=== PATIENT | female | born 1995 | race Caucasian/White ===

== ENCOUNTER 2016-03-15 10:29 | Emergency (ER) | payer SELFPAY ==
[2016-03-15] MEDS ORDERED: Norflex 60 MG/2 ML IM ONE (10:51)
[2016-03-15] MEDS ORDERED: TORAdol 30 mg Injection IM ONE (10:51)
[2016-03-15] MEDS ORDERED: TORAdol 30 mg Injection ONE (10:52)
[2016-03-15] MEDS ORDERED: Norflex 60 MG/2 ML ONE (10:53)
[2016-03-15 10:54] LABS: Collection Type VOID
[2016-03-15 10:55] LABS: COMPLETE URINE MICROSCOPIC? YES
[2016-03-15 10:58] LABS: ADD URINE CULTURE? YES (NO); Bacteria MODERATE /HPF (NEGATIVE); Epithelial Cells MANY /HPF (FEW)
--- NOTE | 2016-03-15 11:06 | ERPHSYRPT ---
- History of Present Illness Time Seen by Provider: 03/15/16 11:02 Source: patient Exam Limitations: no limitations Patient Subjective Stated Complaint: pt states she injured lower back 1 week ago while lifting a bucket. pt states pain got better and then worse over the past few days. Triage Nursing Assessment: pt pink, warm, dry. no swelling to lower back noted. pt ambulated into er without difficulty. Physician History: pt states she injured lower back 1 week ago while lifting a bucket. pt states pain got better and then worse over the past few days. Timing/Duration: day(s) Method of Injury: bending, lifting Quality: aching, cramping, pressure Back Pain Location: paraspinous muscles Severity of Pain-Max: mild Severity of Pain-Current: mild Modifying Factors: Improves With: nothing Allergies/Adverse Reactions: morphine Allergy (Verified 03/15/16 10:47) Hx Tetanus, Diphtheria Vaccination/Date Given: Yes (up to date) Hx Influenza Vaccination/Date Given: No Hx Pneumococcal Vaccination/Date Given: No Immunizations Up to Date: Yes - Review of Systems Constitutional: No Symptoms Eyes: No Symptoms Ears, Nose, & Throat: No Symptoms Respiratory: No Symptoms Cardiac: No Symptoms Abdominal/Gastrointestinal: No Symptoms Musculoskeletal: Back Pain (paraspinal muscle spasm) Skin: No Symptoms - Past Medical History Pertinent Past Medical History: Yes Neurological History: No Pertinent History ENT History: No Pertinent History Cardiac History: Hypertension Respiratory History: No Pertinent History Endocrine Medical History: No Pertinent History Musculoskeletal History: No Pertinent History GI Medical History: No Pertinent History History: No Pertinent History Psycho-Social History: No Pertinent History Female Reproductive Disorders: No Pertinent History - Past Surgical History Past Surgical History: Yes Neuro Surgical History: No Pertinent History Cardiac: No Pertinent History Respiratory: No Pertinent History Gastrointestinal: No Pertinent History Genitourinary: No Pertinent History Musculoskeletal: No Pertinent History Female Surgical History: No Pertinent History Other Surgical History: tubes in ears. sinus surgery - Social History Smoking Status: Current every day smoker How long have you smoked: 2 Exposure to second hand smoke: Yes Drug Use: none Patient Lives Alone: No - Female History Hx Last Menstrual Period: feb 05 2016 - Nursing Vital Signs Temperature: 97.8 F Temperature Source: Oral Pulse Rate: 83 Respiratory Rate: 18 Pain Intensity: 8 - Physical Exam General Appearance: no apparent distress Back Exam: muscle spasm (mid paraspinal muscles) SpO2: 99 Oxygen Delivery: Room Air - Course Nursing assessment & vital signs reviewed: Yes Ordered Tests: Active Orders 24 hr Category Date Time Status CULTURE,URINE Stat Lab 03/15/16 10:45 Received UA W/ MICROSCOPIC Stat Lab 03/15/16 10:45 Completed UA W/RFX UR CULTURE Stat Lab 03/15/16 10:45 Completed Medication Summary Discontinued Medications Generic Name Dose Route Start Last Admin Trade Name Dannyq PRN Reason Stop Dose Admin Ketorolac Tromethamine 60 mg 03/15/16 10:51 03/15/16 10:53 Toradol 30 Mg Injection IM 03/15/16 10:52 60 mg STAT ONE Administration Ketorolac Tromethamine Confirm 03/15/16 10:52 Toradol 30 Mg Injection Administered 03/15/16 10:53 Dose 60 mg .ROUTE .STK-MED ONE Orphenadrine Citrate 60 mg 03/15/16 10:51 03/15/16 10:53 Norflex 60 Mg/2 Ml IM 03/15/16 10:52 60 mg STAT ONE Administration Orphenadrine Citrate Confirm 03/15/16 10:53 Norflex 60 Mg/2 Ml Administered 03/15/16 10:54 Dose 60 mg .ROUTE .STK-MED ONE Lab/Rad Data: Laboratory Results 03/15/16 Range/Units 10:45 Ur Collection Type VOID Urine Color YELLOW (YELLOW) Urine Appearance SLIGHTLY CLOUDY (CLEAR) Urine pH 6.0 (5-6) Ur Specific [place] 1.025 (1.005-1.025) Urine Protein NEGATIVE (Negative) Urine Glucose (UA) NEGATIVE (NEGATIVE) mg/dL Urine Ketones NEGATIVE (NEGATIVE) Urine Nitrite NEGATIVE (NEGATIVE) Urine Bilirubin NEGATIVE (NEGATIVE) Urine Urobilinogen 0.2 (0-1) mg/dL Urine WBC (Auto) SMALL (NEGATIVE) Urine RBC (Auto) MODERATE (0-5) Wil/ul Urine Microscopic RBC 5-10 (0-2) /HPF Urine Microscopic WBC 10-15 (0-5) /HPF Ur Epithelial Cells MANY (FEW) /HPF Urine Bacteria MODERATE (NEGATIVE) /HPF Specimen Received 03/15/16 1045 - Progress Progress: improved, pain not gone completely Counseled pt/family regarding: diagnosis, need for follow-up - Departure Time of Disposition: 11:04 Departure Disposition: Home Clinical Impression: Paraspinal muscle spasm Condition: Stable Critical Care Time: No Referrals: JOSEFA KATHLEEN [Primary Care Provider] - Additional Instructions: BACK INJURY 1. May apply moist heat frequently for relief of pain. Take care not to burn the skin. Do not use heat for more than 30 minutes at a time. 2. Try to sleep on a firm bed, flat on your back. 3. If no improvement is noticed in 2-3 days, follow up with your family physician. 4. If you notice any numbness, tingling, weakness, or problems with your bowel or bladder, you should call your family physician or return to the emergency department. Please follow the instructions given to you. Please take your medication as prescribed if given. If symptoms recur or get worse, come back to the emergency room if you cannot reach your primary care physician, or call your primary care physician for an appointment. Again if your symptoms get worse, come back to the emergency room. Thanks for visiting emergency room, and let us take care of you. Prescriptions: Cyclobenzaprine HCl 10 mg PO TID #30 tablet Naproxen 375 mg [Naprosyn 375 mg] 375 mg PO Q8H #30 tablet
[2016-03-15 11:15] VITALS: BP 124/70; PULSE 70; O2SAT 100
== END 2016-03-15 11:14 | disposition home or self-care (01) ==
LOC: ED 10:29
DX: M62.830 Muscle spasm of back (principal); X50.0XXA Overexertion from strenuous movement or load, initial encounter
CPT/HCPCS: 81000; 87086; 96372; 99283; J1885; J2360

== ENCOUNTER 2016-08-17 05:31 | Emergency (ER) | payer OTHER ==
--- NOTE | 2016-08-17 06:13 | ERPHSYRPT ---
- History of Present Illness Time Seen by Provider: 08/17/16 06:08 Source: patient, family Exam Limitations: no limitations Physician History: pt with ear pain on left for several days and ear drops are not helping , prior problems with same; Timing/Duration: gradual onset, days Severity: moderate ENT Location: ear (L) Prearrival Treatment: over the counter meds, prescription meds Modifying Factors: Improves With: nothing Associated Symptoms: ear pain (L), jaw pain, No poor fluid intake, No difficulty swallowing Allergies/Adverse Reactions: morphine Allergy (Verified 03/15/16 10:47) Home Medications: Dicyclomine HCl 20 mg [Bentyl 20 mg] 20 mg PO DAILY 08/17/16 [History] Hx Tetanus, Diphtheria Vaccination/Date Given: Yes (up to date) Hx Influenza Vaccination/Date Given: No Hx Pneumococcal Vaccination/Date Given: No - Review of Systems Constitutional: No Fever, No Chills Eyes: No Symptoms Ears, Nose, & Throat: Ear Pain Respiratory: No Cough, No Dyspnea Cardiac: No Chest Pain, No Edema, No Syncope Abdominal/Gastrointestinal: No Abdominal Pain, No Nausea, No Vomiting, No Diarrhea Genitourinary Symptoms: No Dysuria Musculoskeletal: No Back Pain, No Neck Pain Skin: No Rash Neurological: No Dizziness, No Focal Weakness, No Sensory Changes Psychological: No Symptoms Endocrine: No Symptoms All Other Systems: Reviewed and Negative - Past Medical History Pertinent Past Medical History: Yes Neurological History: No Pertinent History ENT History: No Pertinent History Cardiac History: Hypertension Respiratory History: No Pertinent History Endocrine Medical History: No Pertinent History Musculoskeletal History: No Pertinent History GI Medical History: No Pertinent History History: No Pertinent History Psycho-Social History: No Pertinent History Female Reproductive Disorders: No Pertinent History - Past Surgical History Past Surgical History: Yes Neuro Surgical History: No Pertinent History Cardiac: No Pertinent History Respiratory: No Pertinent History Gastrointestinal: No Pertinent History Genitourinary: No Pertinent History Musculoskeletal: No Pertinent History Female Surgical History: No Pertinent History Other Surgical History: tubes in ears. sinus surgery - Social History Smoking Status: Current every day smoker How long have you smoked: 2 Exposure to second hand smoke: Yes Drug Use: none Patient Lives Alone: No - Physical Exam General Appearance: no apparent distress, alert Eye Exam: bilateral eye: PERRL, EOMI Ear Exam: right ear: canal normal, TM normal, left ear: discharge, erythema, bilateral ear: auricle normal Nasal Exam: normal inspection Throat Exam: pharynx normal, moist mucus membranes, No dental tenderness, No excessive drooling, No mandibular swelling, No maxillary swelling, No pharynx swelling, No pharynx tenderness, No tongue swollen, No tonsillar exudate, No trismus, No uvula swelling, No voice changes Neck Exam: non-tender, supple, full range of motion, trachea midline Cardiovascular/Respiratory Exam: normal breath sounds, regular rate/rhythm, heart sounds normal Abdominal Exam: non-tender, soft Neurologic Exam: alert, oriented x 3, cooperative, director of enterprise strategy II-XII nml as tested, normal mood/affect, nml station & gait, sensation nml, No motor deficits Skin Exam: normal color, warm, dry - Course Nursing assessment & vital signs reviewed: Yes - Progress Progress: improved, re-examined Counseled pt/family regarding: diagnosis, need for follow-up - Departure Time of Disposition: 06:13 Departure Disposition: Home Clinical Impression: External otitis of right ear Condition: Good Critical Care Time: No Instructions: Otitis Externa Additional Instructions: followup with your dr as you may need an ENT referral return meantime if not improving Prescriptions: Ciprofloxacin [Cipro 500 MG] 500 mg PO BID #14 tablet Ciprofloxacin HCl/Dexameth [Ciprodex Otic Suspension] 7.5 ml OT QID #10 drops.susp Hydrocodone/Acetaminophen [[place] 5-325 Tablet] 1 each PO Q4-6HPRN PRN #14 tablet PRN Reason: Pain
[2016-08-17 06:25] VITALS: O2SAT 99
[2016-08-17] MEDS ORDERED: Cipro 500 MG PO ONE (06:31)
[2016-08-17] MEDS ORDERED: Cipro 500 MG ONE (06:32)
[2016-08-17] MEDS ORDERED: TYLENOL EXTRA STRENGTH 500 MG PO ONE (06:35)
[2016-08-17] MEDS ORDERED: MOTRIN 600 MG PO ONE (06:35)
[2016-08-17] MEDS ORDERED: TYLENOL EXTRA STRENGTH 500 MG ONE (06:36)
[2016-08-17] MEDS ORDERED: MOTRIN 600 MG ONE (06:37)
[2016-08-17] MEDS ORDERED: TORAdol 30 mg Injection IM ONE (06:38)
[2016-08-17] MEDS ORDERED: Phenergan 25 MG INJ IM ONE (06:38)
[2016-08-17] MEDS ORDERED: Phenergan 25 MG INJ ONE ×2 (06:41→06:42)
[2016-08-17] MEDS ORDERED: TORAdol 30 mg Injection ONE (06:41)
[2016-08-17 06:53] VITALS: BP 167/80; PULSE 80
== END 2016-08-17 06:53 | disposition home or self-care (01) ==
LOC: ED 05:31
DX: H60.91 Unspecified otitis externa, right ear (principal)
CPT/HCPCS: 96372; 99284; J1885; J2550; A9270-GY

== ENCOUNTER 2018-06-20 21:46 | Emergency (ER) | payer OTHER ==
[2018-06-20 22:05] VITALS: O2SAT 99
[2018-06-20] MEDS ORDERED: TORAdol 30 mg Injection IM ONE (22:13)
[2018-06-20] MEDS ORDERED: BACIGUENT PACKET TP ONE (22:14)
[2018-06-20] MEDS ORDERED: TORAdol 30 mg Injection ONE (22:15)
[2018-06-20] MEDS ORDERED: BACIGUENT PACKET ONE (22:18)
--- NOTE | 2018-06-20 22:21 | ERPHSYRPT ---
- History of Present Illness Time Seen by Provider: 06/20/18 22:08 Source: patient Exam Limitations: no limitations Patient Subjective Stated Complaint: pt states she stepped wrong off bottom step of porch and twisted left foot. c/o pain in dorsal foot. Triage Nursing Assessment: pink/warm/dry, resp easy, pt wheeled to room able to stand and transfer to bed. a&ox4. Abrasion with no active bleeding noted to distal lateral left foot. Physician History: 22-year-old white female with history of denies blood pressure is high blood pressure depression, elevated testosterone. Patient arrives with complaint of pain in her left foot and ankle after miss stepping on some steps at approximately 9:30. She has pain on her left lateral foot distally also pain in her left ankle worse with movement. Past medical history includes depression, elevated testosterone, Past surgical history includes myringotomy tubes, sinus surgery Method of Injury: twisted (misstep on a step twisting her left foot and ankle) Occurred: hours ago (1 hour ago) Quality: constant, aching Severity of Pain-Max: moderate Severity of Pain-Current: moderate Lower Extremities Pain: foot: left, ankle: left Modifying Factors: Improves With: nothing, movement Associated Symptoms: none Allergies/Adverse Reactions: morphine Adverse Reaction (Verified 06/20/18 21:52) hallucinations Home Medications: Escitalopram Oxalate [Lexapro] 10 mg PO DAILY 06/20/18 [History] Metformin HCl Xr 500 mg [Glucophage XR 500 MG] 500 mg PO DAILY 06/20/18 [ History] Naproxen 500 mg PO BID 06/20/18 [History] Norethindrone [Jencycla] 0.35 mg PO DAILY 06/20/18 [History] Spironolactone 100 mg PO DAILY 06/20/18 [History] Hx Tetanus, Diphtheria Vaccination/Date Given: Yes Hx Influenza Vaccination/Date Given: No Hx Pneumococcal Vaccination/Date Given: No Immunizations Up to Date: Yes - Review of Systems Constitutional: No Fever, No Chills Eyes: No Symptoms Ears, Nose, & Throat: No Symptoms Respiratory: No Cough, No Dyspnea Cardiac: No Chest Pain, No Edema, No Syncope Abdominal/Gastrointestinal: No Abdominal Pain, No Nausea, No Vomiting, No Diarrhea Genitourinary Symptoms: No Dysuria Musculoskeletal: Other (left foot and ankle pain), No Back Pain, No Neck Pain Skin: Other (abrasion left lateral distal foot) Neurological: No Dizziness, No Focal Weakness, No Sensory Changes Psychological: No Symptoms Endocrine: No Symptoms All Other Systems: Reviewed and Negative - Past Medical History Pertinent Past Medical History: Yes Neurological History: No Pertinent History ENT History: No Pertinent History Cardiac History: No Pertinent History Respiratory History: No Pertinent History Endocrine Medical History: No Pertinent History Musculoskeletal History: No Pertinent History GI Medical History: No Pertinent History History: No Pertinent History Psycho-Social History: Depression Female Reproductive Disorders: No Pertinent History Other Medical History: ELEVATED TESTOSTERONE - Past Surgical History Past Surgical History: Yes Neuro Surgical History: No Pertinent History Cardiac: No Pertinent History Respiratory: No Pertinent History Gastrointestinal: No Pertinent History Genitourinary: No Pertinent History Musculoskeletal: No Pertinent History Female Surgical History: No Pertinent History Other Surgical History: tubes in ears. sinus surgery - Social History Smoking Status: Current every day smoker How long have you smoked: 2 Exposure to second hand smoke: Yes Drug Use: none Patient Lives Alone: No - Female History Hx Last Menstrual Period: 05/31/18 Hx Now: No - Nursing Vital Signs Nursing Vital Signs: Initial Vital Signs Temperature 98.9 F 06/20/18 21:57 Pulse Rate 85 06/20/18 21:57 Respiratory Rate 16 06/20/18 21:57 Blood Pressure 182/90 06/20/18 21:57 O2 Sat by Pulse Oximetry 99 06/20/18 21:57 Pain Scale Pain Intensity 10 - Physical Exam General Appearance: mild distress, alert, obese Eyes, Ears, Nose, Throat Exam: moist mucous membranes Neck Exam: non-tender, supple Cardiovascular/Respiratory Exam: chest non-tender, normal breath sounds, regular rate/rhythm, no respiratory distress Gastrointestinal/Abdominal Exam: non-tender, guarding Hips Exam: bilateral: non-tender, normal inspection, normal range of motion, no evidence of injury Legs Exam: bilateral leg: non-tender, normal inspection, normal range of motion , no evidence of injury Knees Exam: bilateral knee: non-tender, normal inspection, normal range of motion, no evidence of injury Ankle Exam: right ankle: non-tender, normal inspection, normal range of motion, no evidence of injury, left ankle: other (left ankle tender laterally with movement and palpation) Foot Exam: right foot: non-tender, normal inspection, normal range of motion, no evidence of injury, left foot: abrasions/lacerations (abrasion left lateral distal foot), bone tenderness (tender left lateral distal foot and midfoot with palpation), limited range of motion (pain with movement left foot), other (pain left lateral foot and ankle with palpation and movement.) DTR - Lower Extremities Exam: ankle (R): 2+, ankle (L): 2+ Neuro/Tendon Exam: normal sensation Mental Status Exam: alert, oriented x 3, cooperative Skin Exam: other (abrasion left distal lateral foot approximately 3 cm) SpO2 Interpretation: normal (99%) SpO2: 99 - Course Nursing assessment & vital signs reviewed: Yes Ordered Tests: Active Orders 24 hr Category Date Time Status Raul Bandage Application -[facility] STAT Care 06/20/18 22:31 Active Splint STAT Care 06/20/18 22:31 Active Wound Care STAT Care 06/20/18 22:14 Active ANKLE (3 VIEWS) Stat Exams 06/20/18 22:12 Taken FOOT (MINIMUM 3 VIEWS) Stat Exams 06/20/18 22:12 Taken Medication Summary Generic Name Dose Route Start Last Admin Trade Name Freq PRN Reason Stop Dose Admin Hydrocodone Bitart/Acetaminophen 2 tab 06/20/18 22:41 [place] 5/325 Mg PO 06/20/18 22:42 SENT HOME W/ PATIENT ONE Discontinued Medications Generic Name Dose Route Start Last Admin Trade Name Freq PRN Reason Stop Dose Admin Bacitracin Zinc 0.9 gm 06/20/18 22:14 06/20/18 22:20 Baciguent Packet TP 06/20/18 22:15 0.9 gm STAT ONE Administration Bacitracin Zinc Confirm 06/20/18 22:18 Baciguent Packet Administered 06/20/18 22:19 Dose 1 gm .ROUTE .STK-MED ONE Ketorolac Tromethamine 60 mg 06/20/18 22:13 06/20/18 22:19 Toradol 30 Mg Injection IM 06/20/18 22:14 60 mg STAT ONE Administration Ketorolac Tromethamine Confirm 06/20/18 22:15 Toradol 30 Mg Injection Administered 06/20/18 22:16 Dose 60 mg .ROUTE .STK-MED ONE - Progress Progress: improved Progress Note: 06/20/18 22:19 This is a 22-year-old white female who states that she has a history of depression, elevated testosterone She arrives with complaint of pain in her left lateral foot and ankle after miss stepping on a step proximally 9:00 she has pain in the left lateral distal foot left lateral midfoot and pain in her left lateral ankle worse with movement and palpation. She has good capillary refill to all toes sensation intact to all toes left dorsal pedal posterior tibial pulses are intact 2 over 4. Patient states that she is not her last menstrual period was May 31, 2018 she states that she is on control pills, She denies any chance of . Will go ahead and give patient Toradol 60 mg IM will have nurses clean the patient's abrasions were foot and go ahead and obtain x-ray of the patient's left foot and ankle. 06/20/18 22:22 Patient states that her tetanus status is up-to-date. 06/20/18 22:34 Patient's x-ray left foot left ankle no fracture no subluxation. Patient is reevaluated patient foot with plantar flexion with squeezing the calf dorsal pedal posterior tibial pulses intact pain with movement of the left foot and ankle good capillary refill all toes sensation intact to all toes. Will have nurse clean abrasions apply bacitracin. Will place Raul wrap left ankle postop shoe left foot. Patient is already on Naprosyn will have her continue this at home. Patient will be given crutches weightbearing as tolerated. Will write for [place] patient can take at home as well she denies any history of substance abuse I have queried inspect I do not see any recent narcotic prescriptions. Impression left foot and ankle sprain. Abrasion left foot. - Departure Departure Disposition: Home Clinical Impression: Abrasion, left foot, initial encounter Sprain of left foot Qualifiers: Encounter type: initial encounter Qualified Code(s): S93.602A - Unspecified sprain of left foot, initial encounter Left ankle sprain Qualifiers: Encounter type: initial encounter Involved ligament of ankle: unspecified ligament Qualified Code(s): S93.402A - Sprain of unspecified ligament of left ankle, initial encounter Condition: Fair Critical Care Time: No Referrals: EVARISTO LAWSON [Primary Care Provider] - Instructions: Contusion (DC), Foot Sprain (DC) Additional Instructions: Return home. Ice and elevate left foot left ankle 24-48 hours. Bacitracin to abrasions until healed. Continue Naprosyn as prescribed by your family doctor. [place] 5/325 one orally every 6 hours as needed for pain. Crutches weightbearing as tolerated. Follow-up with your family doctor if symptoms are worse, no better in 48 hours, or persist longer than one week. Return for acute distress or for severe symptoms. Your x-rays have been preliminarily read they will be reread tomorrow you will be contacted if any discrepancies are noted. Prescriptions: Hydrocodone/APAP 5-325 Tab^^^ [[place] 5-325 Tablet^^^] 1 tab PO Q6HPRN PRN #10 tablet MDD 6 PRN Reason: left foot and ankle pain
[2018-06-20] MEDS ORDERED: NORCO 5/325 MG PO ONE (22:41)
[2018-06-20 22:42] VITALS: BP 142/85; PULSE 81
[2018-06-20] MEDS ORDERED: NORCO 5/325 MG ONE (22:42)
--- NOTE | 2018-06-21 08:42 | XRAY ---
Indication: 5th digit pain following fall. Comparison: August 03, 2013. 3 nonweightbearing views of the left foot now demonstrates tiny heel spurs. No other bony, articular, or soft tissue abnormalities.
--- NOTE | 2018-06-21 08:44 | XRAY ---
Indication: Pain following fall. Comparison: None 3 views of the left ankle demonstrates anterolateral soft tissue swelling and tiny heel spurs. No other bony, articular, or soft tissue abnormalities.
== END 2018-06-20 22:48 | disposition home or self-care (01) ==
LOC: ED 21:46
DX: S93.502A Unspecified sprain of left great toe, initial encounter (principal); S93.402A Sprain of unspecified ligament of left ankle, initial encounter; S90.812A Abrasion, left foot, initial encounter; W50.2XXA Accidental twist by another person, initial encounter; Y93.01 Activity, walking, marching and hiking; M79.672 Pain in left foot; M25.572 Pain in left ankle and joints of left foot; Z79.899 Other long term (current) drug therapy
CPT/HCPCS: 73610; 73630; 96372; 99284; J1885; A9270-GY

== ENCOUNTER 2021-10-02 17:08 | Emergency (ER) | payer OTHER ==
[2021-10-02 17:16] VITALS: BP 208/119
--- NOTE | 2021-10-02 17:21 | ERPHSYRPT ---
- History of Present Illness Time Seen by Provider: 10/02/21 17:15 Source: patient, family Exam Limitations: no limitations Patient Subjective Stated Complaint: PT states "I was getting out of my car a couple of days ago and I twisted and my foot was planted and my knee popped." Triage Nursing Assessment: PT presented alert and oriented X 3, skin pwd. PT ambulates with a limp. PT has tenderness noted to right knee, no deformity or bruising noted. Physician History: Patient is a 26-year-old white female who presents with a complaint of right knee pain. 2 days ago she was getting out of her car plantar foot and then twisted and the foot stayed planted and she suffered a rotational injury to the right knee. She says that it is getting worse every day. Pain is located just below the patella and to the lateral aspect of the knee. Method of Injury: twisted Occurred: days ago (To) Quality: constant, throbbing Severity of Pain-Max: moderate Severity of Pain-Current: moderate Lower Extremities Pain: knee: right Modifying Factors: Improves With: movement Associated Symptoms: unable to bear weight Allergies/Adverse Reactions: morphine Adverse Reaction (Verified 06/20/18 21:52) hallucinations Home Medications: Escitalopram Oxalate [Lexapro] 10 mg PO DAILY 06/20/18 [History] Metformin HCl Xr 500 mg [Glucophage XR 500 MG] 500 mg PO DAILY 06/20/18 [History] Naproxen 500 mg PO BID 06/20/18 [History] Norethindrone [Jencycla] 0.35 mg PO DAILY 06/20/18 [History] Spironolactone 100 mg PO DAILY 06/20/18 [History] Hx Tetanus, Diphtheria Vaccination/Date Given: Yes Hx Influenza Vaccination/Date Given: No Hx Pneumococcal Vaccination/Date Given: No Immunizations Up to Date: Yes Travel Risk - International Travel Have you traveled outside of the country in past 3 weeks: No - Coronavirus Screening Are you exhibiting any of the following symptoms?: No Close contact with a COVID-19 positive Pt in past 14-21 Days: No - Vaccine Status Have you recieved a Covid-19 vaccination: No - Review of Systems Constitutional: No Fever, No Chills Eyes: No Symptoms Ears, Nose, & Throat: No Symptoms Respiratory: No Cough, No Dyspnea Cardiac: No Chest Pain, No Edema, No Syncope Abdominal/Gastrointestinal: No Abdominal Pain, No Nausea, No Vomiting, No Diarrhea Genitourinary Symptoms: No Dysuria Musculoskeletal: Joint Pain, Joint Swelling, No Back Pain, No Neck Pain Skin: No Rash Neurological: No Dizziness, No Focal Weakness, No Sensory Changes Psychological: No Symptoms Endocrine: No Symptoms All Other Systems: Reviewed and Negative - Past Medical History Pertinent Past Medical History: Yes Neurological History: No Pertinent History ENT History: No Pertinent History Cardiac History: No Pertinent History Respiratory History: No Pertinent History Endocrine Medical History: No Pertinent History Musculoskeletal History: No Pertinent History GI Medical History: No Pertinent History History: No Pertinent History Psycho-Social History: Depression Female Reproductive Disorders: No Pertinent History Other Medical History: ELEVATED TESTOSTERONE - Past Surgical History Past Surgical History: Yes Neuro Surgical History: No Pertinent History Cardiac: No Pertinent History Respiratory: No Pertinent History Gastrointestinal: No Pertinent History Genitourinary: No Pertinent History Musculoskeletal: No Pertinent History Female Surgical History: No Pertinent History Other Surgical History: tubes in ears. sinus surgery - Social History Smoking Status: Current every day smoker How long have you smoked: 2 Exposure to second hand smoke: Yes Drug Use: none Patient Lives Alone: No - Female History Hx Last Menstrual Period: 10/02/2021 Hx Now: No - Nursing Vital Signs Nursing Vital Signs: Initial Vital Signs Temperature 97.9 F 10/02/21 17:11 Pulse Rate 111 H 10/02/21 17:11 Respiratory Rate 22 10/02/21 17:11 Blood Pressure 208/119 10/02/21 17:11 O2 Sat by Pulse Oximetry 98 10/02/21 17:11 Pain Scale Pain Intensity 7 - Physical Exam General Appearance: mild distress, alert Eyes, Ears, Nose, Throat Exam: moist mucous membranes Neck Exam: non-tender, supple Cardiovascular/Respiratory Exam: chest non-tender, normal breath sounds, regular rate/rhythm, no respiratory distress Gastrointestinal/Abdominal Exam: non-tender, guarding Back Exam: normal inspection, No vertebral tenderness Hips Exam: bilateral: non-tender, normal inspection, normal range of motion Legs Exam: bilateral leg: non-tender, normal inspection, normal range of motion Knees Exam: right knee: bone tenderness, joint effusion, pain, soft tissue tenderness, swelling, left knee: non-tender, normal inspection, normal range of motion Ankle Exam: bilateral ankle: non-tender, normal inspection, normal range of motion, no evidence of injury Foot Exam: bilateral foot: non-tender, normal inspection, normal range of motion, no evidence of injury Neuro/Tendon Exam: normal sensation, normal motor functions Mental Status Exam: alert, oriented x 3, cooperative Skin Exam: normal color, warm, dry SpO2 Interpretation: normal SpO2: 98 O2 Delivery: Room Air - Course Nursing assessment & vital signs reviewed: Yes - Radiology Exams Right Knee X-ray Interpretation: Reviewed by me, Negative Ordered Tests: Active Orders 24 hr Category Date Time Status KNEE (3 VIEWS) Stat Exams 10/02/21 17:40 Taken - Progress Progress: unchanged - Departure Departure Disposition: Home Clinical Impression: Strain of right knee Condition: Stable Critical Care Time: No Referrals: EVARISTO LAWSON NP [Primary Care Provider] - Follow up/PCP as directed Instructions: Knee Sprain (DC) Prescriptions: Hydrocodone/Acetaminophen [Hydrocodone-Acetamin 5-325 mg] 1 tab PO Q6HPRN PRN 3 Days #12 tablet MDD 4 PRN Reason: Pain
[2021-10-02 18:24] VITALS: PULSE 81; O2SAT 97
--- NOTE | 2021-10-03 08:52 | XRAY ---
Indication: Pain following injury. Comparison: None 3 view right knee demonstrates minimal tricompartmental degenerative spurring and small nonspecific effusion. No other bony, articular, or soft tissue abnormalities.
== END 2021-10-02 18:19 | disposition home or self-care (01) ==
LOC: ED 17:08
DX: S83.91XA Sprain of unspecified site of right knee, initial encounter (principal); X50.0XXA Overexertion from strenuous movement or load, initial encounter; M25.561 Pain in right knee; Z72.0 Tobacco use; Z79.899 Other long term (current) drug therapy; Z28.310 Unvaccinated for COVID-19; Z79.891 Long term (current) use of opiate analgesic
CPT/HCPCS: 73562; 99283; L1830

== ENCOUNTER 2022-04-26 08:19 | Emergency (ER) | payer OTHER, SELFPAY ==
--- NOTE | 2022-04-26 08:26 | ERPHSYRPT ---
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 She is not short of breath. She has not had a cough. She did a home COVID test within the last week that was positive. Few days later she repeated it and it was negative. However the pain as described above has been worsening. Patient is a daily smoker of cigarettes. She has no abdominal pain. She has had no nausea vomiting or diarrhea sy mptoms. Timing/Duration: day(s) (3 to 4 days), worse Abdominal Pain Onset Location: other (Left lateral lower rib pain) Pain Radiation: other (Underneath her left breast) Severity of Pain-Max: moderate Severity of Pain-Current: mild Modifying Factors: Improves With: breathing Associated Symptoms: denies symptoms Previous symptoms: no prior history Allergies/Adverse Reactions: morphine Adverse Reaction (Verified 06/20/18 21:52) hallucinations Hx Tetanus, Diphtheria Vaccination/Date Given: Yes Hx Influenza Vaccination/Date Given: No Hx Pneumococcal Vaccination/Date Given: No Travel Risk - International Travel Have you traveled outside of the country in past 3 weeks: No - Coronavirus Screening Are you exhibiting any of the following symptoms?: No Close contact with a COVID-19 positive Pt in past 14-21 Days: No - Vaccine Status Have you recieved a Covid-19 vaccination: No - Review of Systems Constitutional: No Symptoms Eyes: No Symptoms Ears, Nose, & Throat: No Symptoms Respiratory: No Symptoms Cardiac: No Symptoms Abdominal/Gastrointestinal: No Symptoms Genitourinary Symptoms: No Symptoms Musculoskeletal: Other (Left lateral lower rib pain to palpation) Skin: No Symptoms Neurological: No Symptoms Psychological: No Symptoms Endocrine: No Symptoms Hematologic/Lymphatic: No Symptoms Immunological/Allergic: No Symptoms All Other Systems: Reviewed and Negative - Past Medical History Pertinent Past Medical History: Yes Neurological History: No Pertinent History ENT History: No Pertinent History Cardiac History: No Pertinent History Respiratory History: No Pertinent History Endocrine Medical History: No Pertinent History Musculoskeletal History: No Pertinent History GI Medical History: No Pertinent History History: No Pertinent History Psycho-Social History: Depression Female Reproductive Disorders: No Pertinent History Other Medical History: ELEVATED TESTOSTERONE - Past Surgical History Past Surgical History: Yes Neuro Surgical History: No Pertinent History Cardiac: No Pertinent History Respiratory: No Pertinent History Gastrointestinal: No Pertinent History Genitourinary: No Pertinent History Musculoskeletal: No Pertinent History Female Surgical History: No Pertinent History Other Surgical History: tubes in ears. sinus surgery - Social History Smoking Status: Current every day smoker How long have you smoked: 2 Exposure to second hand smoke: Yes Drug Use: none Patient Lives Alone: No - Nursing Vital Signs Nursing Vital Signs: Initial Vital Signs Temperature 97.6 F 04/26/22 08:27 Pulse Rate 116 H 04/26/22 08:27 Respiratory Rate 20 04/26/22 08:27 Blood Pressure 198/107 04/26/22 08:27 O2 Sat by Pulse Oximetry 99 04/26/22 08:27 Pain Scale Pain Intensity 2 - Course Nursing assessment & vital signs reviewed: Yes EKG Interpreted by Me: RATE (88), Sinus Rhythm, NORMAL AXIS, NORMAL INTERVALS, NORMAL QRS, NORMAL ST-T, Other (I interpreted this twelve-lead EKG. I do not see any abnormal Q waves. There are no acute ST segment changes to suggest acute ischemia.) Ordered Tests: Active Orders 24 hr Category Date Time Status EKG-ER Only STAT Care 04/26/22 08:38 Active IV Insertion STAT Care 04/26/22 08:38 Active CHEST 1 VIEW (PORTABLE) Stat Exams 04/26/22 08:40 Taken AMYLASE Stat Lab 04/26/22 08:50 Completed BLOOD CULTURE Stat Lab 04/26/22 09:08 Received CBC W DIFF Stat Lab 04/26/22 08:50 Completed CMP Stat Lab 04/26/22 08:50 Completed CULTURE,URINE Stat Lab 04/26/22 08:48 Received D-DIMER QUANTITATIVE Stat Lab 04/26/22 08:50 Completed HCG QUALITATIVE,SERUM Stat Lab 04/26/22 08:50 Completed LIPASE Stat Lab 04/26/22 08:50 Completed TROPONIN Q4H Lab 04/26/22 08:59 Completed TROPONIN Q4H Lab 04/26/22 12:45 Ordered TROPONIN Q4H Lab 04/26/22 16:45 Ordered UA W/RFX UR CULTURE Stat Lab 04/26/22 08:48 Completed Lab/Rad Data: Laboratory Result Diagrams 04/26/22 08:50 04/26/22 08:50 Laboratory Results 04/26/22 04/26/22 04/26/22 Range/Units 09:08 08:59 08:50 WBC (4.0-10.5) x10^3/uL RBC (4.1-5.4) x10^6/uL Hgb (12.0-16.0) g/dL Hct (35-47) % MCV (78-100) fL MCH (26-32) pg MCHC (32-36) g/dL RDW (11.5-14.0) % Plt Count (150-450) x10^3/uL MPV (7.5-11.0) fL Gran % (36.0-66.0) % Immature Gran % (Auto) (0.00-0.4) % Nucleat RBC Rel Count (0.00-0.1) % Eos # (Auto) (0-0.5) x10^3/uL Immature Gran # (Auto) (0.00-0.03) x10^3u/L Absolute Lymphs (auto) (1.0-4.6) x10^3/uL Absolute Monos (auto) (0.0-1.3) x10^3/uL Absolute Nucleated RBC (0.00-0.01) x10^3u/L Lymphocytes % (24.0-44.0) % Monocytes % (0.0-12.0) % Eosinophils % (0.00-5.0) % Basophils % (0.0-0.4) % Absolute Granulocytes (1.4-6.9) x10^3/uL Basophils # (0-0.4) x10^3/uL D-Dimer (0.0-0.50) mg/L Sodium (137-145) mmol/L Potassium (3.5-5.1) mmol/L Chloride (98-107) mmol/L Carbon Dioxide (22-30) mmol/L Anion Gap (5-15) MEQ/L BUN (7-17) mg/dL Creatinine (0.52-1.04) mg/dL Estimated GFR ML/MIN Glucose (74-106) mg/dL Calcium (8.4-10.2) mg/dL Total Bilirubin (0.2-1.3) mg/dL AST (14-36) U/L ALT (0-35) U/L Alkaline Phosphatase (38-126) U/L Troponin I < 0.012 (0.000-0.034) ng/mL Serum Total Protein (6.3-8.2) g/dL Albumin (3.5-5.0) g/dL Amylase (30-110) U/L Lipase (23-300) U/L Serum , Qual NEGATIVE (Negative) Urine Color (Yellow) Urine Appearance (Clear) Urine pH (4.6-8.0) Ur Specific [place] (1.005-1.030) Urine Protein (Negative) Urine Glucose (UA) (Negative) mg/dL Urine Ketones (Negative) Urine Blood (Negative) Urine Nitrite (Negative) Urine Bilirubin (Negative) Urine Urobilinogen (0.2) mg/dL Ur Leukocyte Esterase (Negative) U Hyaline Cast (Auto) (0-2) /LPF Urine Microscopic RBC (0-5) /HPF Urine Microscopic WBC (0-5) /HPF Ur Epithelial Cells (None Seen) /HPF Urine Bacteria (None Seen) /HPF Urine Culture Reflexed (NO) Influenza Type A Ag NEGATIVE (NEGATIVE) Influenza Type B Ag NEGATIVE (NEGATIVE) RSV (PCR) NEGATIVE (Negative) SARS-CoV-2 (PCR) POSITIVE A (NEGATIVE) 04/26/22 04/26/22 04/26/22 Range/Units 08:50 08:50 08:50 WBC 5.9 (4.0-10.5) x10^3/uL RBC 5.28 (4.1-5.4) x10^6/uL Hgb 15.7 (12.0-16.0) g/dL Hct 45.9 (35-47) % MCV 86.9 (78-100) fL MCH 29.7 (26-32) pg MCHC 34.2 (32-36) g/dL RDW 11.5 (11.5-14.0) % Plt Count 267 (150-450) x10^3/uL MPV 9.9 (7.5-11.0) fL Gran % 46.2 (36.0-66.0) % Immature Gran % (Auto) 0.2 (0.00-0.4) % Nucleat RBC Rel Count 0.0 (0.00-0.1) % Eos # (Auto) 0.33 (0-0.5) x10^3/uL Immature Gran # (Auto) 0.01 (0.00-0.03) x10^3u/L Absolute Lymphs (auto) 2.44 (1.0-4.6) x10^3/uL Absolute Monos (auto) 0.35 (0.0-1.3) x10^3/uL Absolute Nucleated RBC 0.00 (0.00-0.01) x10^3u/L Lymphocytes % 41.1 (24.0-44.0) % Monocytes % 5.9 (0.0-12.0) % Eosinophils % 5.6 H (0.00-5.0) % Basophils % 1.0 (0.0-0.4) % Absolute Granulocytes 2.75 (1.4-6.9) x10^3/uL Basophils # 0.06 (0-0.4) x10^3/uL D-Dimer 0.22 (0.0-0.50) mg/L Sodium 141 (137-145) mmol/L Potassium 3.9 (3.5-5.1) mmol/L Chloride 107 (98-107) mmol/L Carbon Dioxide 25 (22-30) mmol/L Anion Gap 13.0 (5-15) MEQ/L BUN 9 (7-17) mg/dL Creatinine 0.51 L (0.52-1.04) mg/dL Estimated GFR > 60.0 ML/MIN Glucose 107 H (74-106) mg/dL Calcium 9.5 (8.4-10.2) mg/dL Total Bilirubin 0.60 (0.2-1.3) mg/dL AST 43 H (14-36) U/L ALT 67 H (0-35) U/L Alkaline Phosphatase 67 (38-126) U/L Troponin I (0.000-0.034) ng/mL Serum Total Protein 8.0 (6.3-8.2) g/dL Albumin 4.5 (3.5-5.0) g/dL Amylase 63 (30-110) U/L Lipase 68 (23-300) U/L Serum , Qual (Negative) Urine Color (Yellow) Urine Appearance (Clear) Urine pH (4.6-8.0) Ur Specific [place] (1.005-1.030) Urine Protein (Negative) Urine Glucose (UA) (Negative) mg/dL Urine Ketones (Negative) Urine Blood (Negative) Urine Nitrite (Negative) Urine Bilirubin (Negative) Urine Urobilinogen (0.2) mg/dL Ur Leukocyte Esterase (Negative) U Hyaline Cast (Auto) (0-2) /LPF Urine Microscopic RBC (0-5) /HPF Urine Microscopic WBC (0-5) /HPF Ur Epithelial Cells (None Seen) /HPF Urine Bacteria (None Seen) /HPF Urine Culture Reflexed (NO) Influenza Type A Ag (NEGATIVE) Influenza Type B Ag (NEGATIVE) RSV (PCR) (Negative) SARS-CoV-2 (PCR) (NEGATIVE) 04/26/22 Range/Units 08:48 WBC (4.0-10.5) x10^3/uL RBC (4.1-5.4) x10^6/uL Hgb (12.0-16.0) g/dL Hct (35-47) % MCV (78-100) fL MCH (26-32) pg MCHC (32-36) g/dL RDW (11.5-14.0) % Plt Count (150-450) x10^3/uL MPV (7.5-11.0) fL Gran % (36.0-66.0) % Immature Gran % (Auto) (0.00-0.4) % Nucleat RBC Rel Count (0.00-0.1) % Eos # (Auto) (0-0.5) x10^3/uL Immature Gran # (Auto) (0.00-0.03) x10^3u/L Absolute Lymphs (auto) (1.0-4.6) x10^3/uL Absolute Monos (auto) (0.0-1.3) x10^3/uL Absolute Nucleated RBC (0.00-0.01) x10^3u/L Lymphocytes % (24.0-44.0) % Monocytes % (0.0-12.0) % Eosinophils % (0.00-5.0) % Basophils % (0.0-0.4) % Absolute Granulocytes (1.4-6.9) x10^3/uL Basophils # (0-0.4) x10^3/uL D-Dimer (0.0-0.50) mg/L Sodium (137-145) mmol/L Potassium (3.5-5.1) mmol/L Chloride (98-107) mmol/L Carbon Dioxide (22-30) mmol/L Anion Gap (5-15) MEQ/L BUN (7-17) mg/dL Creatinine (0.52-1.04) mg/dL Estimated GFR ML/MIN Glucose (74-106) mg/dL Calcium (8.4-10.2) mg/dL Total Bilirubin (0.2-1.3) mg/dL AST (14-36) U/L ALT (0-35) U/L Alkaline Phosphatase (38-126) U/L Troponin I (0.000-0.034) ng/mL Serum Total Protein (6.3-8.2) g/dL Albumin (3.5-5.0) g/dL Amylase (30-110) U/L Lipase (23-300) U/L Serum , Qual (Negative) Urine Color Yellow (Yellow) Urine Appearance Cloudy A (Clear) Urine pH 6.5 (4.6-8.0) Ur Specific [place] 1.020 (1.005-1.030) Urine Protein Negative (Negative) Urine Glucose (UA) Negative (Negative) mg/dL Urine Ketones Negative (Negative) Urine Blood Negative (Negative) Urine Nitrite Negative (Negative) Urine Bilirubin Negative (Negative) Urine Urobilinogen 0.2 (0.2) mg/dL Ur Leukocyte Esterase Trace A (Negative) U Hyaline Cast (Auto) NONE SEEN (0-2) /LPF Urine Microscopic RBC 3-5 (0-5) /HPF Urine Microscopic WBC 3-5 (0-5) /HPF Ur Epithelial Cells Few (None Seen) /HPF Urine Bacteria Few A (None Seen) /HPF Urine Culture Reflexed YES (NO) Influenza Type A Ag (NEGATIVE) Influenza Type B Ag (NEGATIVE) RSV (PCR) (Negative) SARS-CoV-2 (PCR) (NEGATIVE) - Progress Progress Note: 04/26/22 09:10 Chest x-ray interpreted by me. No obvious acute cardiopulmonary processes. 04/26/22 10:09 This patient's medical issue is 1 of moderate complexity. The level of complexity and work-up was based on review of the patient's past medical history, medication list, drug allergy list review, history of present illness and physical exam findings. The work-up includes chest x-ray, twelve-lead EKG, troponin, D-dimer, CBC, CMP, viral swabs, group A strep swabs amylase and lipase levels. I reviewed the work-up results. I discussed the results with the patient. The patient has a mild urinary tract infection and has COVID-19 infection. There are no acute cardiopulmonary abnormalities. Patient's symptoms are likely due to the urinary tract infection and COVID-19 infection. Counseled pt/family regarding: lab results, diagnosis, need for follow-up, rad results Medical Desision Making - Discussion of managment Reviewed:: Test results Agreed on:: Treatment plan, need for follow-up - Diagnostic Testing Diagnostic test were ordered, analyzed, and reviewed by me: Yes Radiological Interpretation: Interpreted by me - Risk of complications The pt has a mod risk of morbidity or mortality based on: Need for prescription drug management - Departure Departure Disposition: Home Clinical Impression: Urinary tract infection, COVID-19 virus infection Condition: Stable Critical Care Time: No Referrals: EVARISTO LAWSON NP [Primary Care Provider] - Follow up/PCP as directed Additional Instructions: Drink plenty of fluids. Use Tylenol and ibuprofen for pain and fever control. Take your antibiotics as prescribed. Follow-up with your primary care provider for further evaluation and management. Quarantine yourself for the next 7 to 10 days or as directed by your employer protocol. Prescriptions: Ciprofloxacin [Cipro 500 MG] 500 mg PO BID #14 tablet
[2022-04-26 09:02] LABS: Appearance Cloudy (Clear); Bacteria Few /HPF (None Seen); Bilirubin Negative (Negative); Blood Negative (Negative); Glucose, Urine Negative (Negative); Hyaline Casts NONE SEEN /LPF (0-2); Ketones Negative (Negative); Leukocyte Esterase Trace (Negative); Nitrite Negative (Negative); Ph 6.5 (4.6-8.0); Protein,Urine Dip Negative (Negative); Urobilinogen 0.2 mg/dL (0.2)
[2022-04-26 09:21] LABS: Absolute Neutrophil Ct (ANC) 2.75 x10^3/uL (1.4-6.9); Basophil (Absolute #) 0.06 x10^3/uL (0-0.4); Eosinophil % 5.6 % (0.00-5.0); Eosinophil (Absolute #) 0.33 x10^3/uL (0-0.5); Hematocrit 45.9 % (35-47); Hemoglobin 15.7 g/dL (12.0-16.0); IMMATURE GRAN # 0.01 x10^3u/L (0.00-0.03); IMMATURE GRAN % 0.2 % (0.00-0.4); Lymphocyte (Absolute #) 2.44 x10^3/uL (1.0-4.6); Lymphocytes % 41.1 % (24.0-44.0); Mean Cell Volume 86.9 fL (78-100); Mean Corpuscular Hemoglobin 29.7 pg (26-32); Mean Corpuscular Hgb Concent. 34.2 g/dL (32-36); Mean Platelet Volume 9.9 fL (7.5-11.0); Monocyte (Absolute #) 0.35 x10^3/uL (0.0-1.3); Monocytes % 5.9 % (0.0-12.0); Neutrophil % 46.2 % (36.0-66.0); Platelet Count 267 x10^3/uL (150-450); Red Blood Count 5.28 x10^6/uL (4.1-5.4); Red Cell Distribution Width 11.5 % (11.5-14.0); White Blood Count 5.9 x10^3/uL (4.0-10.5)
[2022-04-26 09:33] LABS: ALBUMIN 4.5 g/dL (3.5-5.0); ALKALINE PHOSPHATASE 67 U/L (38-126); AMYLASE 63 U/L (30-110); BLOOD UREA NITROGEN 9 mg/dL (7-17); CHLORIDE 107 mmol/L (98-107); Calcium 9.5 mg/dL (8.4-10.2); Carbon Dioxide 25 mmol/L (22-30); Creatinine 1 0.51 mg/dL (0.52-1.04); EST GLOMERULAR FILTRATION RATE > 60.0 ML/MIN; Glucose 107 mg/dL (74-106); LIPASE 68 U/L (23-300); Potassium 3.9 mmol/L (3.5-5.1); SGOT/AST 43 U/L (14-36); SGPT/ALT 67 U/L (0-35); SODIUM 141 mmol/L (137-145)
[2022-04-26 09:45] VITALS: O2SAT 97
[2022-04-26 09:49] LABS: ADD URINE CULTURE? YES (NO); Epithelial Cells Few /HPF (None Seen)
[2022-04-26 09:59] LABS: INFLUENZA A NEGATIVE (NEGATIVE); INFLUENZA B NEGATIVE (NEGATIVE); RESPIRATORY SYNCTIAL VIRUS NEGATIVE (Negative)
[2022-04-26 10:03] LABS: SARS-CoV-2 Xpert Express POSITIVE (NEGATIVE)
[2022-04-26 10:25] VITALS: BP 170/90; PULSE 87
--- NOTE | 2022-04-26 19:13 | XRAY ---
Indication: Left chest pain. Comparison: None Portable chest demonstrates hazy right infrahilar interstitial alveolar opacities without consolidation//effusion. Remaining heart, left lung, and bony thorax normal.
== END 2022-04-26 10:38 | disposition home or self-care (01) ==
LOC: ED 08:19
DX: U07.1 COVID-19 (principal); N39.0 Urinary tract infection, site not specified; R07.9 Chest pain, unspecified; Z28.310 Unvaccinated for COVID-19; Z72.0 Tobacco use
CPT/HCPCS: 0241U; 36000; 36415; 71045; 80053; 81001; 82150; 83690; 84484; 84703; 85025; 85379; 87040; 87086; 93005; 99284

== ENCOUNTER 2023-05-31 08:28 | Emergency (ER) | payer OTHER ==
[2023-05-31] MEDS ORDERED: TYLENOL EXTRA STRENGTH 500 MG ONE (08:37)
[2023-05-31] MEDS ORDERED: BABY ASPIRIN 81 MG CHEW ONE (08:37)
[2023-05-31] MEDS ORDERED: XYLOCAINE VISCOUS 2% 15 ML CUP ONE (08:38)
[2023-05-31] MEDS ORDERED: MAALOX ES 30 ML UNIT DOSE ONE (08:38)
--- NOTE | 2023-05-31 08:39 | ERPHSYRPT ---
- History of Present Illness Time Seen by Provider: 05/31/23 08:36 Historian: patient, family Exam Limitations: no limitations Physician History: 27 years old female with history of anxiety presented in the ER with complaint of chest pain since yesterday. Patient reports initially it was pain on the left side and gradually moved in the substernal area, moderate intensity dull aching to sharp with some pressure sensation and radiation to the neck and arms at times. It hurts to take a deep breath. No history of cough congestion. No history of PE/DVT, not taking any contraceptive pills. Currently pain is better. Denies any palpitations or shortness of breath. Timing/Duration: yesterday Nitro Today/Relief: no nitro taken today Aspirin Treatment Today: no aspirin today Allergies/Adverse Reactions: morphine Adverse Reaction (Verified 05/31/23 08:49) hallucinations Hx Tetanus, Diphtheria Vaccination/Date Given: Yes Hx Influenza Vaccination/Date Given: No Hx Pneumococcal Vaccination/Date Given: No - Review of Systems Constitutional: No Symptoms Eyes: No Symptoms Ears, Nose, & Throat: No Symptoms Respiratory: No Symptoms Cardiac: Chest Pain Abdominal/Gastrointestinal: No Symptoms Genitourinary Symptoms: No Symptoms Musculoskeletal: No Symptoms Skin: No Symptoms Neurological: No Symptoms Psychological: Anxiety Endocrine: No Symptoms Hematologic/Lymphatic: No Symptoms - Past Medical History Pertinent Past Medical History: Yes Neurological History: No Pertinent History ENT History: No Pertinent History Cardiac History: No Pertinent History Respiratory History: No Pertinent History Endocrine Medical History: No Pertinent History Musculoskeletal History: No Pertinent History GI Medical History: No Pertinent History History: No Pertinent History Psycho-Social History: Depression Female Reproductive Disorders: No Pertinent History Other Medical History: ELEVATED TESTOSTERONE - Past Surgical History Past Surgical History: Yes Neuro Surgical History: No Pertinent History Cardiac: No Pertinent History Respiratory: No Pertinent History Gastrointestinal: No Pertinent History Genitourinary: No Pertinent History Musculoskeletal: No Pertinent History Female Surgical History: No Pertinent History Other Surgical History: tubes in ears. sinus surgery - Social History Smoking Status: Current every day smoker How long have you smoked: 2 Exposure to second hand smoke: Yes Drug Use: none Patient Lives Alone: No - Nursing Vital Signs Nursing Vital Signs: Initial Vital Signs Temperature 98.2 F 05/31/23 08:29 Pulse Rate 83 05/31/23 08:29 Respiratory Rate 23 05/31/23 08:29 Blood Pressure 188/113 05/31/23 08:29 O2 Sat by Pulse Oximetry 97 05/31/23 08:29 Pain Scale Pain Intensity 0 - Physical Exam General Appearance: no apparent distress, alert, anxiety Eye Exam: PERRL/EOMI Ears, Nose, Throat Exam: normal ENT inspection Neck Exam: normal inspection, supple, full range of motion Respiratory Exam: normal breath sounds, lungs clear Cardiovascular Exam: regular rate/rhythm, normal heart sounds Gastrointestinal/Abdomen Exam: soft, normal bowel sounds, No tenderness Back Exam: normal inspection, normal range of motion Extremity Exam: normal inspection, normal range of motion Neurologic Exam: alert, oriented x 3, cooperative, 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, No normal mood/affect (Anxious) Skin Exam: normal color SpO2 Interpretation: normal SpO2: 96 O2 Delivery: Room Air - Course EKG Interpreted by Me: RATE (80), Sinus Rhythm, NORMAL AXIS, NORMAL INTERVALS, NORMAL QRS Ordered Tests: Active Orders 24 hr Category Date Time Status Staff Psychiatrist STAT Care 05/31/23 08:36 Completed EKG-ER Only STAT Care 05/31/23 08:36 Completed IV Insertion STAT Care 05/31/23 08:36 Completed CHEST 1 VIEW (PORTABLE) Stat Exams 05/31/23 10:00 Completed CBC W DIFF Stat Lab 05/31/23 08:50 Completed CK-Creatinine Phosphokinase Stat Lab 05/31/23 08:50 Completed CMP Stat Lab 05/31/23 08:50 Completed D-DIMER QUANTITATIVE Stat Lab 05/31/23 08:50 Completed HCG QUALITATIVE, SERUM Stat Lab 05/31/23 Completed NT PRO BNPII Stat Lab 05/31/23 08:50 Completed TROPONIN Q4H Lab 05/31/23 08:50 Completed TROPONIN Q4H Lab 05/31/23 12:20 Completed Medication Summary Discontinued Medications Generic Name Dose Route Start Last Admin Trade Name Dannyq PRN Reason Stop Dose Admin Acetaminophen 1,000 mg 05/31/23 08:35 05/31/23 08:40 Acetaminophen 500 Mg Tablet PO 05/31/23 08:36 1,000 mg STAT STA Administration Acetaminophen Confirm 05/31/23 08:37 Acetaminophen 500 Mg Tablet Administered 05/31/23 08:38 Dose 1,000 mg .ROUTE .STK-MED ONE Al Hydrox/Mg Hydrox/Simethicone Confirm 05/31/23 08:38 Mag Hydrox/Al Hydrox/Simeth 30 Ml Udcup Administered 05/31/23 08:39 Dose 30 ml .ROUTE .STK-MED ONE Aspirin 324 mg 05/31/23 08:36 05/31/23 08:40 Aspirin 81 Mg Tab.Chew PO 05/31/23 08:37 324 mg STAT ONE Administration Aspirin Confirm 05/31/23 08:37 Aspirin 81 Mg Tab.Chew Administered 05/31/23 08:38 Dose 324 mg .ROUTE .STK-MED ONE Lidocaine HCl Confirm 05/31/23 08:38 Lidocaine Hcl 2% Viscous 15 Ml Udcup Administered 05/31/23 08:39 Dose 15 ml .ROUTE .STK-MED ONE Magnesium Hydroxide 45 ml 05/31/23 08:36 05/31/23 08:40 Mag Hydrx/Alum Hyd/Simeth/Lido 45 Ml Bottle PO 05/31/23 08:37 45 ml STAT ONE Administration Lab/Rad Data: Laboratory Result Diagrams 05/31/23 08:50 05/31/23 08:50 Laboratory Results 05/31/23 05/31/23 05/31/23 Range/Units Unknown 12:20 08:50 WBC (4.0-10.5) x10^3/uL RBC (4.1-5.4) x10^6/uL Hgb (12.0-16.0) g/dL Hct (35-47) % MCV (78-100) fL MCH (26-32) pg MCHC (32-36) g/dL RDW (11.5-14.0) % Plt Count (150-450) x10^3/uL MPV (7.5-11.0) fL Gran % (36.0-66.0) % Immature Gran % (Auto) (0.00-0.4) % Nucleat RBC Rel Count (0.00-0.1) % Eos # (Auto) (0-0.5) x10^3/uL Immature Gran # (Auto) (0.00-0.03) x10^3u/L Absolute Lymphs (auto) (1.0-4.6) x10^3/uL Absolute Monos (auto) (0.0-1.3) x10^3/uL Absolute Nucleated RBC (0.00-0.01) x10^3u/L Lymphocytes % (24.0-44.0) % Monocytes % (0.0-12.0) % Eosinophils % (0.00-5.0) % Basophils % (0.0-0.4) % Absolute Granulocytes (1.4-6.9) x10^3/uL Basophils # (0-0.4) x10^3/uL D-Dimer (0.0-0.50) mg/L Sodium (135-145) mmol/L Potassium (3.5-5.1) mmol/L Chloride (98-107) mmol/L Carbon Dioxide (22-30) mmol/L Anion Gap (5-15) MEQ/L BUN (7-17) mg/dL Creatinine (0.52-1.04) mg/dL Estimated GFR ML/MIN Glucose (74-106) mg/dL Calcium (8.4-10.2) mg/dL Total Bilirubin (0.2-1.3) mg/dL AST (14-36) U/L ALT (0-35) U/L Alkaline Phosphatase (38-126) U/L Creatine Kinase (30-135) U/L Troponin I < 0.012 (0.000-0.033) ng/mL NT-Pro-B Natriuret Pep < 20.0 (<300) pg/mL Serum Total Protein (6.3-8.2) g/dL Albumin (3.5-5.0) g/dL Serum HCG, Qual NEGATIVE (NEGATIVE) 05/31/23 05/31/23 05/31/23 Range/Units 08:50 08:50 08:50 WBC (4.0-10.5) x10^3/uL RBC (4.1-5.4) x10^6/uL Hgb (12.0-16.0) g/dL Hct (35-47) % MCV (78-100) fL MCH (26-32) pg MCHC (32-36) g/dL RDW (11.5-14.0) % Plt Count (150-450) x10^3/uL MPV (7.5-11.0) fL Gran % (36.0-66.0) % Immature Gran % (Auto) (0.00-0.4) % Nucleat RBC Rel Count (0.00-0.1) % Eos # (Auto) (0-0.5) x10^3/uL Immature Gran # (Auto) (0.00-0.03) x10^3u/L Absolute Lymphs (auto) (1.0-4.6) x10^3/uL Absolute Monos (auto) (0.0-1.3) x10^3/uL Absolute Nucleated RBC (0.00-0.01) x10^3u/L Lymphocytes % (24.0-44.0) % Monocytes % (0.0-12.0) % Eosinophils % (0.00-5.0) % Basophils % (0.0-0.4) % Absolute Granulocytes (1.4-6.9) x10^3/uL Basophils # (0-0.4) x10^3/uL D-Dimer < 0.19 (0.0-0.50) mg/L Sodium 140 (135-145) mmol/L Potassium 4.0 (3.5-5.1) mmol/L Chloride 110 H (98-107) mmol/L Carbon Dioxide 24 (22-30) mmol/L Anion Gap 10.1 (5-15) MEQ/L BUN 11 (7-17) mg/dL Creatinine 0.68 (0.52-1.04) mg/dL Estimated GFR 120.8 ML/MIN Glucose 89 (74-106) mg/dL Calcium 9.5 (8.4-10.2) mg/dL Total Bilirubin 0.20 (0.2-1.3) mg/dL AST 19 (14-36) U/L ALT 18 (0-35) U/L Alkaline Phosphatase 69 (38-126) U/L Creatine Kinase 54 (30-135) U/L Troponin I < 0.012 (0.000-0.033) ng/mL NT-Pro-B Natriuret Pep (<300) pg/mL Serum Total Protein 7.5 (6.3-8.2) g/dL Albumin 4.1 (3.5-5.0) g/dL Serum HCG, Qual (NEGATIVE) 05/31/23 Range/Units 08:50 WBC 5.8 (4.0-10.5) x10^3/uL RBC 4.62 (4.1-5.4) x10^6/uL Hgb 13.4 (12.0-16.0) g/dL Hct 41.1 (35-47) % MCV 89.0 (78-100) fL MCH 29.0 (26-32) pg MCHC 32.6 (32-36) g/dL RDW 11.9 (11.5-14.0) % Plt Count 263 (150-450) x10^3/uL MPV 9.9 (7.5-11.0) fL Gran % 47.5 (36.0-66.0) % Immature Gran % (Auto) 0.2 (0.00-0.4) % Nucleat RBC Rel Count 0.0 (0.00-0.1) % Eos # (Auto) 0.29 (0-0.5) x10^3/uL Immature Gran # (Auto) 0.01 (0.00-0.03) x10^3u/L Absolute Lymphs (auto) 2.21 (1.0-4.6) x10^3/uL Absolute Monos (auto) 0.45 (0.0-1.3) x10^3/uL Absolute Nucleated RBC 0.00 (0.00-0.01) x10^3u/L Lymphocytes % 38.1 (24.0-44.0) % Monocytes % 7.8 (0.0-12.0) % Eosinophils % 5.0 (0.00-5.0) % Basophils % 1.4 (0.0-0.4) % Absolute Granulocytes 2.76 (1.4-6.9) x10^3/uL Basophils # 0.08 (0-0.4) x10^3/uL D-Dimer (0.0-0.50) mg/L Sodium (135-145) mmol/L Potassium (3.5-5.1) mmol/L Chloride (98-107) mmol/L Carbon Dioxide (22-30) mmol/L Anion Gap (5-15) MEQ/L BUN (7-17) mg/dL Creatinine (0.52-1.04) mg/dL Estimated GFR ML/MIN Glucose (74-106) mg/dL Calcium (8.4-10.2) mg/dL Total Bilirubin (0.2-1.3) mg/dL AST (14-36) U/L ALT (0-35) U/L Alkaline Phosphatase (38-126) U/L Creatine Kinase (30-135) U/L Troponin I (0.000-0.033) ng/mL NT-Pro-B Natriuret Pep (<300) pg/mL Serum Total Protein (6.3-8.2) g/dL Albumin (3.5-5.0) g/dL Serum HCG, Qual (NEGATIVE) - Progress Progress: improved, re-examined Air Movement: good Progress Note: 05/31/23 12:57 27-year-old is evaluated for chest pain since yesterday. Patient pain is better during evaluation. EKG showed sinus rhythm with no acute ischemic changes. Negative troponins x 2, negative D-dimers. Normal white count, unremarkable chemistries. Chest x-ray negative for any acute cardiopulmonary findings reviewed by me. Patient is feeling better after GI cocktail, Tylenol and aspirin. I believe she has some element of GERD with esophagitis. She is low heart score, do not think needs further evaluation in the emergency room are needs to be admitted, recommend outpatient follow-up. Discussed signs symptoms of worsening needing return to ER which she seems understanding. Stable for discharge. Blood Culture(s) Obtained: No Antibiotics given: No Counseled pt/family regarding: lab results, diagnosis, need for follow-up, rad results, smoking cessation - Departure Departure Disposition: Home Clinical Impression: Atypical chest pain Condition: Stable Critical Care Time: No Referrals: EVARISTO LAWSON NP [Primary Care Provider] - Follow up with PCP 1 day LUIS TRACY [CONSULTING PHYSICIAN] - Follow up/PCP as directed (Call for appointment) Instructions: Angina (DC), Chest Pain (DC) Additional Instructions: follow up with PCP/cardiology for re evaluation. return to ER for any worsening, no smoking Prescriptions: PANTOPRAZOLE 40 mg Tablet [Protonix 40MG Tablet] 40 mg PO QAM #30 tab
[2023-05-31] MEDS: BABY ASPIRIN 81 MG CHEW PO ONE (08:40)
[2023-05-31] MEDS: TYLENOL EXTRA STRENGTH 500 MG PO STA (08:40)
[2023-05-31] MEDS: GI COCKTAIL 45 ML (Maalox/Lidocaine) PO ONE (08:40)
[2023-05-31 08:49] VITALS: TEMP 98.2
[2023-05-31 09:25] LABS: Absolute Neutrophil Ct (ANC) 2.76 x10^3/uL (1.4-6.9); BASOPHIL % 1.4 % (0.0-0.4); Basophil (Absolute #) 0.08 x10^3/uL (0-0.4); Eosinophil (Absolute #) 0.29 x10^3/uL (0-0.5); Hematocrit 41.1 % (35-47); Hemoglobin 13.4 g/dL (12.0-16.0); IMMATURE GRAN # 0.01 x10^3u/L (0.00-0.03); IMMATURE GRAN % 0.2 % (0.00-0.4); Lymphocyte (Absolute #) 2.21 x10^3/uL (1.0-4.6); Lymphocytes % 38.1 % (24.0-44.0); Mean Corpuscular Hgb Concent. 32.6 g/dL (32-36); Mean Platelet Volume 9.9 fL (7.5-11.0); Monocyte (Absolute #) 0.45 x10^3/uL (0.0-1.3); Monocytes % 7.8 % (0.0-12.0); Neutrophil % 47.5 % (36.0-66.0); Platelet Count 263 x10^3/uL (150-450); Red Blood Count 4.62 x10^6/uL (4.1-5.4); Red Cell Distribution Width 11.9 % (11.5-14.0); White Blood Count 5.8 x10^3/uL (4.0-10.5)
[2023-05-31 09:38] LABS: ALBUMIN 4.1 g/dL (3.5-5.0); ANION GAP 10.1 MEQ/L (5-15); BILIRUBIN,TOTAL 0.2 mg/dL (0.2-1.3); Calcium 9.5 mg/dL (8.4-10.2); Creatinine 1 0.68 mg/dL (0.52-1.04); EST GLOMERULAR FILTRATION RATE 120.8 ML/MIN; Total Protein 7.5 g/dL (6.3-8.2)
[2023-05-31 09:49] LABS: HCG SERUM TEST NEGATIVE (NEGATIVE)
[2023-05-31 13:02] VITALS: BP 145/92; PULSE 71; RESP 30
--- NOTE | 2023-05-31 22:11 | XRAY ---
Indication: Chest pain. Comparison: April 26, 2022 Portable chest inflated and clear. Heart not enlarged. Bony thorax intact. No new/acute findings.
[2023-05-31 22:23] VITALS: O2SAT 96
== END 2023-05-31 13:11 | disposition home or self-care (01) ==
LOC: ED 08:28
DX: R07.89 Other chest pain (principal); Z72.0 Tobacco use
CPT/HCPCS: 36000; 36415; 71045; 80053; 82550; 83880; 84484; 84703; 85025; 85379; 93005; 93041; 99284; A9270-GY

== ENCOUNTER 2024-04-17 13:26 | Emergency (ER) | payer OTHER ==
[2024-04-17 14:11] VITALS: BP 163/107; PULSE 85; TEMP 98.2; O2SAT 99
--- NOTE | 2024-04-17 14:35 | ERPHSYRPT ---
- History of Present Illness Time Seen by Provider: 04/17/24 14:34 Source: patient Exam Limitations: no limitations Patient Subjective Stated Complaint: pt here for burning to left side of head off and on for 2 weeks now. no injury. Triage Nursing Assessment: pt alert, walked in, resp easy, skin w/d/p. pupils equal and reactive. 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 Allergies/Adverse Reactions: morphine Adverse Reaction (Verified 04/17/24 14:08) hallucinations Hx Tetanus, Diphtheria Vaccination/Date Given: Yes Hx Influenza Vaccination/Date Given: Yes Hx Pneumococcal Vaccination/Date Given: No Immunizations Up to Date: Yes Travel Risk - International Travel Have you traveled outside of the country in past 3 weeks: No - Emerging Infectious Disease Are you exhibiting symptoms associated with any current EIDs: No - Past Medical History Pertinent Past Medical History: Yes Neurological History: No Pertinent History ENT History: No Pertinent History Cardiac History: No Pertinent History Respiratory History: No Pertinent History Endocrine Medical History: No Pertinent History Musculoskeletal History: No Pertinent History GI Medical History: No Pertinent History History: No Pertinent History Psycho-Social History: Depression Female Reproductive Disorders: No Pertinent History Other Medical History: ELEVATED TESTOSTERONE - Past Surgical History Past Surgical History: Yes Neuro Surgical History: No Pertinent History Cardiac: No Pertinent History Respiratory: No Pertinent History Gastrointestinal: No Pertinent History Genitourinary: No Pertinent History Musculoskeletal: No Pertinent History Female Surgical History: No Pertinent History Other Surgical History: tubes in ears. sinus surgery - Female History Hx Last Menstrual Period: feb 23 Hx Now: No - Social History Smoking Status: Current every day smoker How long have you smoked: 2 Exposure to second hand smoke: Yes Drug Use: none - Social Determinants of Health Will the patient participate in the screening: Yes Do you worry about a steady place to live?: No Do you have any problems with any of the following?: No known problems In the past 12 months,have you had to go without utilities?: No Transportation Issues: No Has anyone in your support network made you feel unsafe?: No Have you or anyone in your house had to go w/o enough food: No - Nursing Vital Signs Nursing Vital Signs: Initial Vital Signs Blood Pressure 163/107 04/17/24 14:08 O2 Sat by Pulse Oximetry 98 04/17/24 14:08 Pain Scale Pain Intensity 2 - Physical Exam SpO2: 99 - Departure Departure Disposition: Home Clinical Impression: Irritant contact dermatitis of scalp, Headache Condition: Good Critical Care Time: No Referrals: EVARISTO LAWSON NP [Primary Care Provider] - Follow up/PCP as directed Instructions: Contact dermatitis Prescriptions: predniSONE [Prednisone] 50 mg PO DAILY 4 Days #4 tablet
[2024-04-17] MEDS ORDERED: DELTASONE 20 MG ONE (14:38)
[2024-04-17] MEDS: DELTASONE 20 MG PO ONE (14:40)
== END 2024-04-17 14:50 | disposition home or self-care (01) ==
LOC: ED 13:26
DX: L24.9 Irritant contact dermatitis, unspecified cause (principal); R51.9 Headache, unspecified; Z79.52 Long term (current) use of systemic steroids; Z72.0 Tobacco use
CPT/HCPCS: 99281; 99283; A9270-GY